=== PATIENT | male | born 1950 | race Caucasian/White ===

== ENCOUNTER 2016-05-27 06:42 | Day surgery (SDC) | payer OTHER, BC ==
[~2016-05-27] VITALS: Ht 182.9 cm; Wt 89.0 kg
[~2016-05-27 06:42] MED LIST: AMOXICILLIN500 MG PO; ARTHROTEC 751 TABLET PO; ASPIRIN81 M2 PO; ATORVASTATIN CA80 MG PO; BRILINTA90 MG PO; CLINDAMYCIN HC300 MG PO; CYCLOBENZAPRINE10 MG PO; DILAUDID2 MG PO; FLEXERIL10 MG PO; FLOMAX0.4 MG PO; HYDROCODON-ACE1 EAC7 PO; IRON325 M1 PO; LANSOPRAZOLE30 MG PO; LEXAPRO10 MG PO; LIDODERM 5% P1 PATCH TD; LIPITOR80 MG PO; LISINOPRIL-HCT1 EACH PO; LISINOPRIL10 MG PO; MEDROL DOSEPAK4 MG PO; METOPROLOL SUCC25 MG PO; MINOCYCLINE HC100 MG PO; MINOCYCLINE HCL50 MG PO; MOBIC15 MG PO; MOTRIN800 MG PO; MULTIVITAMIN1 EAC2 PO; NAPROXEN500 MG PO; NEURONTIN300 MG PO; NICOTINE PATCH1 EAC1 TD; NITROSTAT0.4 MG SL; OXYCONTIN15 MG PO; PREVACID30 MG PO; PRINIVIL10 MG PO; TOPROL XL25 MG PO; VALIUM5 MG PO; ZESTRIL,PRINIVI10 MG PO; [UNRECOGNIZED DRUG - REMARK]; [UNRECOGNIZED DRUG - REMARK]
[2016-05-27 07:08] VITALS: BP 113/76
[2016-05-27] MEDS ORDERED: NORCO 5/3251 TABLET PO (10:09)
[2016-05-27 12:28] VITALS: BP 123/70
[2016-05-27 13:28] VITALS: BP 104/67
== END 2016-05-27 13:50 | disposition home or self-care (01) ==
LOC: SDC 06:42
PROC: 0YQ60ZZ Repair Left Inguinal Region, Open Approach (ICD-10-PCS; principal; 2016-05-27)
DX: K40.90 Unilateral inguinal hernia, without obstruction or gangrene, not specified as recurrent (principal); I86.8 Varicose veins of other specified sites; M19.90 Unspecified osteoarthritis, unspecified site; K21.9 Gastro-esophageal reflux disease without esophagitis; I10 Essential (primary) hypertension; Z88.0 Allergy status to penicillin
CPT/HCPCS: 88304; C1781; J0330; J1170; J1885; J2250; J2300; J2405; J2765; J3010; J3370

== ENCOUNTER 2016-06-19 08:56 | Day surgery (SDC) | payer OTHER, BC ==
[~2016-06-19] VITALS: Ht 185.4 cm; Wt 86.4 kg
[~2016-06-19 08:56] MED LIST changes: +NORCO 5/3251 TABLET PO
[2016-06-19 09:21] VITALS: BP 125/87
[2016-06-19] MEDS ORDERED: NORCO 5/3251 TABLET PO (13:48)
[2016-06-19] MEDS ORDERED: COLACE100 MG PO (13:48)
[2016-06-19 15:13] VITALS: BP 108/71
[2016-06-19 16:10] VITALS: BP 116/72
[2016-06-19 17:43] VITALS: BP 136/76
== END 2016-06-19 17:13 | disposition home or self-care (01) ==
LOC: SDC 08:56
PROC: 0WUF4JZ Supplement Abdominal Wall with Synthetic Substitute, Percutaneous Endoscopic Approach (ICD-10-PCS; principal; 2016-06-19)
DX: K42.9 Umbilical hernia without obstruction or gangrene (principal); I10 Essential (primary) hypertension; I25.10 Atherosclerotic heart disease of native coronary artery without angina pectoris; I25.2 Old myocardial infarction; E88.81 Metabolic syndrome and other insulin resistance; Z87.891 Personal history of nicotine dependence
CPT/HCPCS: C1781; J1170; J1885; J2250; J2765; J3010

== ENCOUNTER 2016-11-10 08:27 | Day surgery (SDC) | payer OTHER, BC ==
[~2016-11-10] VITALS: Ht 185.4 cm; Wt 86.2 kg
[~2016-11-10 08:27] MED LIST changes: +COLACE100 MG PO; +LO-DOSE ASPIRIN81 M1 PO
== END 2016-11-10 10:27 | disposition home or self-care (01) ==
LOC: PAIN 08:27 → SDC 09:15 → PAIN 09:15
DX: M47.26 Other spondylosis with radiculopathy, lumbar region (principal); M96.1 Postlaminectomy syndrome, not elsewhere classified; M79.1 Myalgia; M54.2 Cervicalgia; I10 Essential (primary) hypertension; K21.9 Gastro-esophageal reflux disease without esophagitis; I25.2 Old myocardial infarction; Z88.0 Allergy status to penicillin; Z79.82 Long term (current) use of aspirin; Z87.891 Personal history of nicotine dependence; Z79.891 Long term (current) use of opiate analgesic
CPT/HCPCS: J1030; J2250; J3010; S0020

== ENCOUNTER 2017-01-10 18:34 | Observation (INO) | payer OTHER, BC ==
[~2017-01-10] VITALS: Ht 185.4 cm; Wt 93.2 kg
[~2017-01-10 18:34] MED LIST changes: +LORTAB 10-3251 EACH PO
[2017-01-10 20:02] LABS: HEMATOCRIT 39.2 % (38.0-50.0); MCH 34.5 PG (29.0-34.0); MCHC 34.4 G/DL (30.0-36.0); MCV 100.3 FL (86-99); MEAN PLAT.VOLUME 9.1 uM^3 (9.0-12.4); PLATELET COUNT 187 K/uL (156-360); RBC DIS.WIDTH-CV 14.1 % (11.8-14.6); RBC DIS.WIDTH-SD 51.7 % (39-53); RED BLOOD COUNT 3.91 M/uL (4.00-5.50)
[2017-01-10 20:07] LABS: CHLORIDE 104 mEq/L (99-109); POTASSIUM 3.7 mEq/L (3.7-5.4); SODIUM 140 mEq/L (136-147)
[2017-01-10 20:08] LABS: GLUCOSE 115 mg/dL (70-99)
[2017-01-10 20:10] LABS: ANION GAP 15 MEQ/L (2-14)
[2017-01-10 20:12] LABS: GFR ESTIMATE (CALCULATED) > 59 mL/min/
[2017-01-10 20:13] LABS: UREA NITROGEN (BUN) 6 mg/dL (9-23)
[2017-01-10 20:19] LABS: TROP-I INTERPRETATION NEGATIVE; TROPONIN-I < 0.01 ng/mL (0.0-0.30)
[2017-01-10] MEDS ORDERED: NEURONTIN300 MG PO (21:23)
[2017-01-11 00:13] VITALS: BP 112/69
[2017-01-11 04:41] VITALS: BP 117/74
[2017-01-11 05:40] LABS: HEMATOCRIT 37.8 % (38.0-50.0); MCH 34.5 PG (29.0-34.0); MCHC 33.9 G/DL (30.0-36.0); MCV 101.9 FL (86-99); MEAN PLAT.VOLUME 9.1 uM^3 (9.0-12.4); PLATELET COUNT 173 K/uL (156-360); RBC DIS.WIDTH-CV 14.3 % (11.8-14.6); RBC DIS.WIDTH-SD 53.5 % (39-53); RED BLOOD COUNT 3.71 M/uL (4.00-5.50); WHITE BLOOD COUNT 4.3 K/uL (4.1-10.2)
[2017-01-11 05:47] LABS: TROP-I INTERPRETATION NEGATIVE; TROPONIN-I < 0.01 ng/mL (0.0-0.30)
[2017-01-11 05:55] LABS: ALKALINE PHOSPHATASE 72 IU/L (3-129); ANION GAP 6 MEQ/L (2-14); CHLORIDE 109 MEQ/L (99-109); GFR ESTIMATE (CALCULATED) > 59 mL/min/; GLUCOSE 92 mg/dL (70-99); SAMPLE HEMOLYSIS CHECK 0; SAMPLE ICTERIC CHECK 0; SAMPLE LIPEMIA CHECK 0; SODIUM 143 MEQ/L (136-147); TOTAL BILIRUBIN 0.4 MG/DL (0.0-1.0); UREA NITROGEN (BUN) 10 mg/dL (9-23)
[2017-01-11 07:37] VITALS: BP 134/82
[2017-01-11 10:28] LABS: TROP-I INTERPRETATION NEGATIVE; TROPONIN-I < 0.01 ng/mL (0.0-0.30)
== END 2017-01-11 11:47 | disposition home or self-care (01) ==
LOC: EME 18:34 → EDOF 23:07 → ENRESERV 23:10 → 5WEST 23:53
PROVIDERS: Hospitalist
DX: R07.9 Chest pain, unspecified (principal); I25.10 Atherosclerotic heart disease of native coronary artery without angina pectoris; I25.2 Old myocardial infarction; Z95.5 Presence of coronary angioplasty implant and graft; I10 Essential (primary) hypertension; E78.5 Hyperlipidemia, unspecified; Z86.711 Personal history of pulmonary embolism; I71.2 Thoracic aortic aneurysm, without rupture; J43.9 Emphysema, unspecified; Z87.891 Personal history of nicotine dependence; Z79.82 Long term (current) use of aspirin; Z82.49 Family history of ischemic heart disease and other diseases of the circulatory system; G89.29 Other chronic pain; Z98.1 Arthrodesis status; Z82.0 Family history of epilepsy and other diseases of the nervous system; Z80.8 Family history of malignant neoplasm of other organs or systems; Z82.5 Family history of asthma and other chronic lower respiratory diseases; Z88.0 Allergy status to penicillin
CPT/HCPCS: 71020; 71275; 80048; 80053; 84484; 85027; 93005; 99281; 99285; G0378; J7030

== ENCOUNTER → 2017-01-19 | Day surgery (SDC) | payer OTHER, BC ==
[~2017-01-19] VITALS: Ht 185.4 cm; Wt 93.2 kg
[~2017-01-19] MED LIST changes: +GABAPENTIN600 MG PO
== END | disposition home or self-care (01) ==
LOC: PAIN 10:49 → SDC 11:30 → PAIN 11:30
PROC: 015B3ZZ Destruction of Lumbar Nerve, Percutaneous Approach (ICD-10-PCS; principal; 2017-01-19)
DX: M47.26 Other spondylosis with radiculopathy, lumbar region (principal); M96.1 Postlaminectomy syndrome, not elsewhere classified; F41.9 Anxiety disorder, unspecified; Z98.1 Arthrodesis status; M19.90 Unspecified osteoarthritis, unspecified site; F32.9 Major depressive disorder, single episode, unspecified; I25.2 Old myocardial infarction; K22.70 Barrett's esophagus without dysplasia; K21.9 Gastro-esophageal reflux disease without esophagitis; Z87.891 Personal history of nicotine dependence; Z79.82 Long term (current) use of aspirin; Z88.1 Allergy status to other antibiotic agents
CPT/HCPCS: J1030; J1885; J2250; J3010; S0020

== ENCOUNTER 2017-02-02 08:33 | Day surgery (SDC) | payer OTHER, BC ==
[2017-02-02] MEDS ORDERED: ASPIRIN81 M2 PO (08:58)
== END 2017-02-02 10:10 | disposition home or self-care (01) ==
LOC: PAIN 08:33 → SDC 09:00 → PAIN 10:10
DX: M47.812 Spondylosis without myelopathy or radiculopathy, cervical region (principal); M54.2 Cervicalgia; G89.29 Other chronic pain; M79.1 Myalgia; I10 Essential (primary) hypertension; K21.9 Gastro-esophageal reflux disease without esophagitis; M47.26 Other spondylosis with radiculopathy, lumbar region; M96.1 Postlaminectomy syndrome, not elsewhere classified; I25.2 Old myocardial infarction; Z98.1 Arthrodesis status; Z79.82 Long term (current) use of aspirin; Z79.891 Long term (current) use of opiate analgesic; Z95.5 Presence of coronary angioplasty implant and graft; F17.200 Nicotine dependence, unspecified, uncomplicated
CPT/HCPCS: J1030; J2250; J3010; S0020

== ENCOUNTER 2017-04-07 08:28 | Day surgery (SDC) | payer OTHER, BC ==
[~2017-04-07] VITALS: Ht 185.4 cm; Wt 93.0 kg
== END 2017-04-07 09:50 | disposition home or self-care (01) ==
LOC: PAIN 08:28 → SDC 09:00 → PAIN 09:00
DX: M47.812 Spondylosis without myelopathy or radiculopathy, cervical region (principal); M54.2 Cervicalgia; G89.29 Other chronic pain; M47.26 Other spondylosis with radiculopathy, lumbar region; M96.1 Postlaminectomy syndrome, not elsewhere classified; K22.70 Barrett's esophagus without dysplasia; K21.9 Gastro-esophageal reflux disease without esophagitis; I10 Essential (primary) hypertension; I25.2 Old myocardial infarction; F17.200 Nicotine dependence, unspecified, uncomplicated; Z87.891 Personal history of nicotine dependence; Z95.5 Presence of coronary angioplasty implant and graft; Z79.82 Long term (current) use of aspirin; Z79.891 Long term (current) use of opiate analgesic
CPT/HCPCS: J1030; J2250; J3010; S0020

== ENCOUNTER 2017-06-02 07:10 | Day surgery (SDC) | payer OTHER, BC ==
[~2017-06-02] VITALS: Ht 185.4 cm; Wt 94.3 kg
== END 2017-06-02 09:10 | disposition home or self-care (01) ==
LOC: PAIN 07:10 → SDC 07:45 → PAIN 07:45
DX: M16.11 Unilateral primary osteoarthritis, right hip (principal); M25.551 Pain in right hip; M47.812 Spondylosis without myelopathy or radiculopathy, cervical region; M47.816 Spondylosis without myelopathy or radiculopathy, lumbar region; K22.70 Barrett's esophagus without dysplasia; Z87.891 Personal history of nicotine dependence; Z79.82 Long term (current) use of aspirin; Z98.1 Arthrodesis status; Z88.1 Allergy status to other antibiotic agents
CPT/HCPCS: J1030; J2250; J3010; S0020

== ENCOUNTER 2017-07-07 08:39 | Day surgery (SDC) | payer OTHER, BC ==
[~2017-07-07] VITALS: Ht 185.4 cm; Wt 89.8 kg
[2017-07-07] MEDS ORDERED: NORCO 10/3251 TABLET PO (08:52)
== END 2017-07-07 09:55 | disposition home or self-care (01) ==
LOC: PAIN 08:39 → SDC 09:15 → PAIN 09:55
DX: M16.0 Bilateral primary osteoarthritis of hip (principal); M47.816 Spondylosis without myelopathy or radiculopathy, lumbar region; M96.1 Postlaminectomy syndrome, not elsewhere classified; M54.16 Radiculopathy, lumbar region; M47.812 Spondylosis without myelopathy or radiculopathy, cervical region; I10 Essential (primary) hypertension; M79.1 Myalgia; K21.9 Gastro-esophageal reflux disease without esophagitis; N40.0 Benign prostatic hyperplasia without lower urinary tract symptoms; F41.8 Other specified anxiety disorders; I25.2 Old myocardial infarction; Z79.82 Long term (current) use of aspirin; F17.210 Nicotine dependence, cigarettes, uncomplicated; Z95.5 Presence of coronary angioplasty implant and graft
CPT/HCPCS: J1030; J2250; S0020

== ENCOUNTER 2017-11-16 08:35 | Day surgery (SDC) | payer OTHER, BC ==
[~2017-11-16] VITALS: Ht 185.4 cm; Wt 89.8 kg
[~2017-11-16 08:35] MED LIST changes: +NORCO 10/3251 TABLET PO
== END 2017-11-16 10:35 | disposition home or self-care (01) ==
LOC: PAIN 08:35 → SDC 09:30 → PAIN 09:30
DX: M54.12 Radiculopathy, cervical region (principal); M47.812 Spondylosis without myelopathy or radiculopathy, cervical region; G89.29 Other chronic pain; Z87.891 Personal history of nicotine dependence; K22.70 Barrett's esophagus without dysplasia; Z98.1 Arthrodesis status; Z79.82 Long term (current) use of aspirin; Z88.1 Allergy status to other antibiotic agents
CPT/HCPCS: J1100; J2250; J3010